=== PATIENT | male | born 1940 | race Two or more races ===

== ENCOUNTER 2017-03-19 17:23 | Inpatient (IN) | payer MEDICARE, OTHER ==
[~2017-03-19] VITALS: Ht 188 cm; Wt 118.8 kg
[2017-03-19] MEDS ORDERED: SODIUM CHLORIDE 0.9% 1,000 ML IVB ONE (18:36)
[2017-03-19 20:04] LABS: Basophils # (auto) 0 uL; Basophils % (auto) 0.5 % (0.0-2.0); Eosinophils # (auto) 0 uL; Eosinophils % (auto) 0.6 % (0.0-7.0); Hematocrit 38.9 % (41.0-53.0); Hemoglobin 12.7 g/dL (13.5-17.5); Lymphocytes # (auto) 0.7 uL; Lymphocytes % (auto) 10.1 % (10.0-50.0); Mean Corpuscular Hemoglobin 30.1 pg (28.0-32.0); Mean Corpuscular Hgb Conc. 32.6 g/dL (32.0-36.0); Mean Corpuscular Volume 92.2 fL (80.0-100.0); Monocytes # (auto) 0.2 uL; Monocytes % (auto) 2.6 % (0.0-12.0); Neutrophils # (auto) 5.6 uL; Neutrophils % (auto) 86.2 % (37.0-80.0); Red Blood Cells 4.22 10^6/uL (4.5-5.90); Red Cell Distribution Width 15.7 % (11.8-14.3); White Blood Cell 6.6 10^3/uL (4.4-10.8)
[2017-03-19 20:11] LABS: Platelet Count (auto) 127 10^3/uL (140-450)
[2017-03-19 20:23] LABS: Albumin 3.5 g/dL (3.4-5.0); Anion Gap 10 (5-15); Blood Urea Nitrogen 23 mg/dL (7-18); Calcium 8.5 mg/dL (8.5-10.1); Carbon Dioxide 26 mmol/L (21-32); Chloride 106 mmol/L (98-107); Glucose 66 mg/dL (74-106); Potassium 3.6 mmol/L (3.5-5.1); Sodium 142 mmol/L (136-145)
[2017-03-19 20:25] LABS: Alanine Aminotransferase 17 U/L (16-61); Aspartate Aminotransferase 21 U/L (15-37); BUN/Creatinine Ratio 19.8; GFR African American 78 mL/min; GFR Non-African American 65 mL/min
[2017-03-19 20:30] LABS: Alkaline Phosphatase 37 U/L (45-117); Bilirubin, Total 0.7 mg/dL (0.2-1.0); Total Protein 6.8 g/dL (6.4-8.2)
[2017-03-19] MEDS ORDERED: AZITHROMYCIN 500MG/ 250ML 250 ML IV ONE (21:15)
[2017-03-19] MEDS ORDERED: NITROGLYCERIN 0.4 MG SL TAB SL PRN (21:15)
[2017-03-19] MEDS ORDERED: HYDROcodone-ACET 5/325MG TAB PO PRN (21:15)
[2017-03-19] MEDS ORDERED: DEXTROSE (50%) 50ML SYRG IV PRN (21:15)
[2017-03-19] MEDS ORDERED: ONDANSETRON HCL 4 MG/2 ML VIAL IV PRN (21:15)
[2017-03-19] MEDS ORDERED: MORPHINE SULFATE 4 MG/ML SYR/VIAL IV PRN (21:15)
[2017-03-19] MEDS ORDERED: ACETAMINOPHEN 500 MG TAB PO PRN (21:15)
[2017-03-19] MEDS ORDERED: CARV25TA55 PO (21:42)
[2017-03-19] MEDS ORDERED: BENA40TA7 PO (21:42)
[2017-03-19] MEDS ORDERED: APIX5TAB PO (21:47)
[2017-03-19] MEDS ORDERED: FENO1TAB42 PO (21:47)
[2017-03-19] MEDS ORDERED: MAGN400T5 PO (21:47)
[2017-03-19] MEDS ORDERED: TAMS0.4C36 PO (21:47)
[2017-03-19] MEDS ORDERED: ASPI-231 PO (21:47)
[2017-03-19] MEDS ORDERED: FINA5TAB4 PO (21:47)
[2017-03-19] MEDS ORDERED: GLY5T PO (21:47)
[2017-03-19] MEDS ORDERED: ATOR20TA50 PO (21:47)
[2017-03-19] MEDS ORDERED: APIXABAN 2.5 MG TAB PO SCH (22:00)
[2017-03-19] MEDS: ACCU-CHEK COMFORT CURVE STRIP VI SCH (22:00)
[2017-03-19 22:10] VITALS: BP 154/74
[2017-03-19 22:30] VITALS: BP 154/74
[2017-03-19] MEDS: APIXABAN 5 MG TAB PO SCH (23:17)
[2017-03-19] MEDS: InsuLIN REG 1unit/0.01ml Soln (100units/ml) SC SCH (23:18)
[2017-03-20] MEDS ORDERED: TEMAZEPAM 15 MG CAP PO PRN (00:15)
[2017-03-20 05:00] VITALS: BP 131/80
[2017-03-20] MEDS: InsuLIN REG 1unit/0.01ml Soln (100units/ml) SC SCH ×2 (06:34→12:12)
[2017-03-20] MEDS: ACCU-CHEK COMFORT CURVE STRIP VI SCH ×2 (06:34→12:12)
[2017-03-20 08:00] VITALS: BP 142/68
[2017-03-20] MEDS: APIXABAN 5 MG TAB PO SCH (08:40)
[2017-03-20 09:00] VITALS: BP 142/68
[2017-03-20] MEDS ORDERED: ASPirin-EC 81 mg tab PO SCH (10:00)
[2017-03-20] MEDS ORDERED: AZITHROMYCIN 250 MG TAB PO SCH (10:00)
[2017-03-20] MEDS ORDERED: cefTRIAXone 1GM/10ml IVPUSH 10 ML IV SCH (12:45)
[2017-03-20] MEDS ORDERED: OSELTAMIVIR 75 MG CAP PO SCH (12:52)
[2017-03-20] MEDS ORDERED: LEVO500T21 PO (12:55)
[2017-03-20] MEDS ORDERED: TAMIFLU PO (12:55)
[2017-03-20 13:00] VITALS: BP 136/76
[2017-03-20] MEDS ORDERED: LEVOFLOXACIN 500 MG TAB PO SCH (13:00)
[2017-03-20 14:22] VITALS: BP 138/72
== END 2017-03-20 15:56 | disposition home or self-care (01) | DRG 637 ==
LOC: ER 17:23 → TELE 17:24 → TELE-WESTW 22:31
PROVIDERS: ADMIT Nurse Practitioner Family; ATTEND Internal Medicine
DX: E11.649 Type 2 diabetes mellitus with hypoglycemia without coma (principal); J18.1 Lobar pneumonia, unspecified organism; I50.9 Heart failure, unspecified; I48.91 Unspecified atrial fibrillation; E11.22 Type 2 diabetes mellitus with diabetic chronic kidney disease; D64.9 Anemia, unspecified; E78.5 Hyperlipidemia, unspecified; N18.9 Chronic kidney disease, unspecified; N40.0 Benign prostatic hyperplasia without lower urinary tract symptoms; Z95.1 Presence of aortocoronary bypass graft; Z79.84 Long term (current) use of oral hypoglycemic drugs; Z79.899 Other long term (current) drug therapy
CPT/HCPCS: 36415; 70450; 71046; 80053; 82962; 83735; 83880; 84484; 85025; 93005; 94761; 96360; J1815